=== PATIENT | female | born 1950 | race Caucasian/White ===

== ENCOUNTER → 2020-05-06 | Day surgery (SDC) | payer OTHER ==
[~2020-05-06] MED LIST: ACYCLOVIR400 MG PO; AMBIEN5 MG PO; ATIVAN0.5 MG PO; ATORVASTATIN CA10 MG PO; BACLOFEN10 MG PO; CLONAZEPAM 1MG T1 MG PO; ESCITALOPRAM OX20 MG PO; NORCO 5-325 TA1 EACH PO; OMEPRAZOLE40 MG PO; OS-CAL+D500 MG PO; PAXIL PO; VITAMIN B-121000 MCG PO
[2020-05-06 08:10] LABS: HCT 38.1 % (37.0-47.0); HGB 11.6 g/dl (12.5-16.0); MCH 26.2 pg (25.0-31.0); MCHC 30.4 g/dL (32.0-36.0); MCV 86.2 fL (78.0-100.0); MPV 12.2 fL (6.0-9.5); RBC 4.42 M/uL (4.20-5.40); WBC 5.7 K/uL (4.0-10.5)
[2020-05-06 08:30] LABS: ALBUMIN 4.2 g/dL (3.4-5.0); BILIRUBIN - TOTAL 0.7 mg/dL (0.2-1.0); BUN/CREAT RATIO (CALC) 19.8 RATIO; CREATININE 1.06 mg/dL (0.51-0.95); GLOBULIN (CALCULATION) 3.5 g/dL; POTASSIUM 3.4 mmol/L (3.5-5.1); TOTAL PROTEIN 7.7 g/dL (6.4-8.2)
== END | disposition home or self-care (01) ==
LOC: FAS 07:06
PROVIDERS: Surgery
DX: K29.50 Unspecified chronic gastritis without bleeding (principal); K21.9 Gastro-esophageal reflux disease without esophagitis; K44.9 Diaphragmatic hernia without obstruction or gangrene; K57.30 Diverticulosis of large intestine without perforation or abscess without bleeding; D50.9 Iron deficiency anemia, unspecified; F17.210 Nicotine dependence, cigarettes, uncomplicated; M17.10 Unilateral primary osteoarthritis, unspecified knee; M85.80 Other specified disorders of bone density and structure, unspecified site; E78.5 Hyperlipidemia, unspecified; E78.00 Pure hypercholesterolemia, unspecified; Z79.899 Other long term (current) drug therapy; Z78.0 Asymptomatic menopausal state; Z88.5 Allergy status to narcotic agent; Z20.822 Contact with and (suspected) exposure to COVID-19
CPT/HCPCS: 36415; 80053; 88305; J2250; J2704; J7120

== ENCOUNTER 2020-07-12 19:20 | Emergency (ER) | payer OTHER ==
[~2020-07-12 19:20] MED LIST changes: -NORCO 5-325 TA1 EACH PO
[2020-07-12] MEDS ORDERED: NORCO 5-325 TA1 EACH PO (21:12)
== END 2020-07-12 21:21 | disposition home or self-care (01) ==
LOC: FER 19:20
DX: S16.1XXA Strain of muscle, fascia and tendon at neck level, initial encounter (principal); S00.03XA Contusion of scalp, initial encounter; S70.02XA Contusion of left hip, initial encounter; M54.5 Low back pain; I10 Essential (primary) hypertension; Z88.5 Allergy status to narcotic agent; W17.89XA Other fall from one level to another, initial encounter; Y92.009 Unspecified place in unspecified non-institutional (private) residence as the place of occurrence of the external cause
CPT/HCPCS: 70450; 72125; 72170

== ENCOUNTER 2021-06-13 07:15 | Emergency (ER) | payer OTHER ==
[~2021-06-13] VITALS: Ht 165.1 cm; Wt 68.0 kg
[~2021-06-13 07:15] MED LIST changes: +NORCO 5-325 TA1 EACH PO
[2021-06-13 09:05] LABS: BILIRUBIN NEGATIVE (NEGATIVE); BLOOD NEGATIVE Ery/uL (NEGATIVE); CLARITY CLEAR (CLEAR); COLOR YELLOW (YELLOW); GLUCOSE (U) NORMAL (NORMAL); LEUKOCYTES NEGATIVE Leu/uL (NEGATIVE); NITRITE NEGATIVE (NEGATIVE); PROTEIN NEGATIVE (NEGATIVE); UROBILINOGEN 0.2 mg/dL (0.2-1.0)
[2021-06-13 09:05] LABS: BASOPHIL 0.2 % (0-2); EOSINOPHIL 1.9 % (0-7); HCT 35.4 % (37.0-47.0); HGB 11.2 g/dl (12.5-16.0); LYMPHOCYTE 22.6 % (15-48); MCHC 31.6 g/dL (32.0-36.0); MCV 91.7 fL (78.0-100.0); MONOCYTE 9.5 % (0-12); NEUTROPHIL 65.6 % (41-80); NRBC 0; PLT 214 K/uL (150-400); RBC 3.86 M/uL (4.20-5.40); WBC 4.7 K/uL (4.0-10.5)
[2021-06-13 09:10] LABS: INR 1.01 (0.9-1.2); PROTHROMBIN TIME 12.7 SECONDS (11.8-13.4); PTT 24.1 SECONDS (24.4-34.7)
[2021-06-13 09:27] LABS: IRON % SATURATION 19.8 %SAT (20-50)
[2021-06-13 09:40] LABS: ALBUMIN 3.5 g/dL (3.4-5.0); BILIRUBIN - TOTAL 0.5 mg/dL (0.2-1.0); CREATININE 1.04 mg/dL (0.51-0.95); FT4 (FREE T4) 0.9 ng/dL (0.76-1.46); GLOBULIN (CALCULATION) 3.3 g/dL; MAGNESIUM 2.1 mg/dL (1.8-2.4); POTASSIUM 4.1 mmol/L (3.5-5.1); TOTAL PROTEIN 6.8 g/dL (6.4-8.2)
== END 2021-06-13 14:28 | disposition home or self-care (01) ==
LOC: FER 07:15
PROVIDERS: Emergency Medicine
DX: I95.1 Orthostatic hypotension (principal); E86.0 Dehydration; E61.1 Iron deficiency; Z88.5 Allergy status to narcotic agent
CPT/HCPCS: 36415; 70450; 71045; 72125; 80053; 81003; 82728; 83540; 83550; 83735; 84145; 84439; 84443; 84484; 85025; 85610; 85730; 93005; J7030